=== PATIENT | male | born 2000 | race African-American/Black ===

== ENCOUNTER 2023-04-27 20:12 | Emergency (ER) | payer OTHER ==
[~2023-04-27] VITALS: Ht 144.8 cm; Wt 52.8 kg
[~2023-04-27 20:12] MED LIST: BECL0.089
[2023-04-27 20:20] VITALS: BP 136/83; PULSE 68; RESP 18; TEMP 98.1; O2SAT 100
== END 2023-04-27 21:15 | disposition home or self-care (01) ==
LOC: MED 20:12
DX: R07.89 Other chest pain (principal); R11.10 Vomiting, unspecified; J45.909 Unspecified asthma, uncomplicated; Z87.448 Personal history of other diseases of urinary system; Z98.890 Other specified postprocedural states; Z79.899 Other long term (current) drug therapy
CPT/HCPCS: 93005; 99283